=== PATIENT | female | born 1950 | race Caucasian/White ===

== ENCOUNTER → 2021-08-06 | Outpatient (CLI) | payer MEDICARE, OTHER ==
[~2021-08-06] MED LIST: D31000TA2 PO; IRON27TA2 PO; PANT40TA29 PO; SUCR1TAB56 PO; VITA-243 PO; VITACAP8 PO
== END ==
LOC: M LABSMTC 11:44
PROVIDERS: ATTEND Anesthesiology
DX: Z01.812 Encounter for preprocedural laboratory examination (principal); Z11.52 Encounter for screening for COVID-19

== ENCOUNTER 2021-08-09 13:43 | Day surgery (SDC) | payer MEDICARE, OTHER ==
[~2021-08-09] VITALS: Ht 165.1 cm; Wt 53.2 kg
[~2021-08-09 13:43] MED LIST changes: +LIDOCAINE 1% MDV 20ML VIAL SQ PRN; +LR 1,000 ML IV ONE; +NS 1,000 ML IV ONE
[2021-08-09] MEDS ORDERED: LIDOCAINE 2% 100MG/5ML SDV (FOR ANES.) As Ordered ONE (15:28)
[2021-08-09] MEDS ORDERED: propofoL 200 MG/20 ML VIAL As Ordered ONE (15:28)
[2021-08-09] MEDS ORDERED: LABETALOL 100MG/20ML VIAL As Ordered ONE (15:55)
--- NOTE | 2021-08-09 16:43 | ROOR ---
Patient Name: Radha Willett Procedure Date: 08/09/2021 3:42 PM Date of : 1950 Age: 71 Room: [facility] Gender: Female Note Status: Finalized Procedure: Upper GI endoscopy Indications: Remove PEG tube (no longer needed) Providers: Frederic Amaral MD Referring MD: AUGUST FERNÁNDEZ MD Requesting Provider: Medicines: Monitored Anesthesia Care Complications: No immediate complications. Procedure: Pre-Anesthesia Assessment: - Prior to the procedure, a History and Physical was performed, and patient medications and allergies were reviewed. The patient is competent. The risks and benefits of the procedure and the sedation options and risks were discussed with the patient. All questions were answered and informed consent was obtained. Patient identification and proposed procedure were verified by the physician, the nurse and the anesthesiologist in the procedure room. Mental Status Examination: alert and oriented. Airway Examination: normal oropharyngeal airway and neck mobility. Respiratory Examination: clear to auscultation. CV Examination: normal. Prophylactic Antibiotics: The patient does not require prophylactic antibiotics. Prior Anticoagulants: The patient has taken no previous anticoagulant or antiplatelet agents. ASA Grade Assessment: II - A patient with mild systemic disease. After reviewing the risks and benefits, the patient was deemed in satisfactory condition to undergo the procedure. The anesthesia plan was to use monitored anesthesia care (MAC). Immediately prior to administration of medications, the patient was re-assessed for adequacy to receive sedatives. The heart rate, respiratory rate, oxygen saturations, blood pressure, adequacy of pulmonary ventilation, and response to care were monitored throughout the procedure. The physical status of the patient was re-assessed after the procedure. The Endoscope was introduced through the mouth, and advanced to the duodenal bulb. The upper GI endoscopy was accomplished without difficulty. The patient tolerated the procedure well. Findings: The examined esophagus was normal. The Z-line was regular and was found at the gastroesophageal junction. Extrinsic compression on the stomach was found in the gastric body and in the gastric antrum. There was evidence of an eroding gastrostomy tube present on the anterior wall of the gastric body. This was characterized by visible sutures. The PEG required removal because it was no longer necessary and was not functioning. The PEG was cut externally, grasped, and removed with the scope. Removal was easily accomplished. Patchy moderately friable mucosa with contact bleeding was found in the gastric antrum. Biopsies were taken with a cold forceps for histology. Verification of patient identification for the specimen was done by the physician and nurse using the patient's name, date and medical record number. Estimated blood loss was minimal. Impression: - Normal esophagus. - Z-line regular, at the gastroesophageal junction. - Extrinsic compression in the gastric body and in the gastric antrum. - Eroding gastrostomy tube present characterized by visible sutures. - Friable gastric mucosa. Biopsied. - The PEG was cut externally, grasped, and removed with the scope because it was no longer necessary and was not functioning. Recommendation: - Patient has a contact number available for emergencies. The signs and symptoms of potential delayed complications were discussed with the patient. Return to normal activities tomorrow. Written discharge instructions were provided to the patient. - High fiber diet. - Continue present medications. - Await pathology results. - Follow an antireflux regimen. - Refer to a surgeon as previously scheduled. 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 - Return to primary care physician. Procedure Code(s): --- Professional --- 87384, Esophagogastroduodenoscopy, flexible, transoral; with removal of foreign body(s) 00482, Esophagogastroduodenoscopy, flexible, transoral; with biopsy, single or multiple Diagnosis Code(s): --- Professional --- K31.89, Other diseases of stomach and duodenum K94.23, Gastrostomy malfunction Z43.1, Encounter for attention to gastrostomy CPT copyright 2019 [employer]. All rights reserved. The codes documented in this report are preliminary and upon bright cutter review may be revised to meet current compliance requirements. Frederic Amaral MD Frederic Amaral MD 08/09/2021 4:42:37 PM Electronically signed by Frederic Amaral MD Number of Addenda: 0 Note Initiated On: 08/09/2021 3:42 PM Estimated Blood Loss: Estimated blood loss was minimal.
[2021-08-09 16:58] VITALS: BP 171/90
== END 2021-08-09 17:06 | disposition home or self-care (01) ==
LOC: M SDC 13:43 → EDUNIT# 16:00 → M SDC 17:06
PROVIDERS: ATTEND Internal Medicine Gastroenterology
DX: K31.89 Other diseases of stomach and duodenum (principal); K94.23 Gastrostomy malfunction; Z85.89 Personal history of malignant neoplasm of other organs and systems; Z79.899 Other long term (current) drug therapy; Z11.52 Encounter for screening for COVID-19
CPT/HCPCS: 43239; 43762; 88305; U0002

== ENCOUNTER → 2023-04-02 | Outpatient (CLI) | payer MEDICARE, OTHER ==
[~2023-04-02] MED LIST changes: -D31000TA2 PO; +LIDOCAINE 1% MDV 20ML VIAL As Ordered ONE; -LIDOCAINE 1% MDV 20ML VIAL SQ PRN; -LR 1,000 ML IV ONE; -NS 1,000 ML IV ONE; +VITA100093 PO
[2023-04-02 12:00] VITALS: TEMP 98.5
[2023-04-02 13:30] VITALS: BP 113/69; O2SAT 100
== END ==
LOC: M IRPRO 11:17
PROVIDERS: ATTEND Surgery
DX: K63.2 Fistula of intestine (principal)
CPT/HCPCS: 36569; C1751